=== PATIENT | male | born 1945 | race Caucasian/White ===

== ENCOUNTER 2016-11-12 15:03 | Observation (INO) | payer MEDICARE ==
--- NOTE | ~2016-11-12 | EKG ---
PATIENT: NATALIA BRAGG UNIT #: [id number] Ventricular Rate: 70 BPM Atrial Rate: 70 BPM P-R Interval: 184 ms QRS Duration: 144 ms Q-T Interval: 430 ms QTC Calculation(Bezet): 464 ms P [place]: 83 degrees Calculated R [place]: 0 degrees Calculated T [place]: -24 degrees Diagnosis Line: Sinus rhythm with Premature supraventricular Diagnosis Line: complexes Diagnosis Line: Right bundle branch block Diagnosis Line: Cannot rule out Inferior infarct , age Diagnosis Line: undetermined Diagnosis Line: Abnormal ECG Diagnosis Line: When compared with ECG of 31-JAN-2016 16:36, Diagnosis Line: Premature supraventricular complexes are now Diagnosis Line: Present Diagnosis Line: Minimal criteria for Inferior infarct are now Diagnosis Line: Present Diagnosis Line: Confirmed by RENEE BROWN MD ([id number]) on Diagnosis Line: 11/13/2016 1:29:58 PM INTERPRETING MD: STEPHANIE JOAQUIN
--- NOTE | ~2016-11-12 | CR72 ---
[facility]. [facility] A Service of [facility] & [facility] RADIOLOGY TEXT RESULTS PATIENT: NATALIA BRAGG SR LOCATION: [place] [address] : 43 UNIT #: [id number] AGE: [address]: Jens Scott MD SEX: M ORDER DR: [id number] [facility] [address] [facility] [address] [facility]. [place], [place] [address] [id number] I MR#: [id number] #: [id number] NAME: NATALIA BRAGG SR : 1945 SEX: M STUDY DATE/TIME: 11/12/2016 15:55 UNIT: [facility] ROOM: [facility] STUDY DESCRIPTION: CR Chest Single View Portable Attending Physician: Jens Scott M.D. Ordering Physician: Chris Thornton M.D. Primary Care Physician: Sawyer Pham M.D. MEDICAL IMAGING REPORT This report is preliminary unless electronic signature is present EXAM Portable chest INDICATIONS Left-sided chest pain today. COMPARISON STUDIES 03/06/2016. FINDINGS There is no acute-appearing infiltrate. The heart size is normal. Atherosclerotic calcification of the aorta. The visualized osseous structures are unremarkable. IMPRESSION No active disease. Dictated by... Chava Garrett M.D. THIS IS AN ELECTRONICALLY VERIFIED REPORT Chava Garrett M.D. at 11/14/2016 7:24 AM MY/mario TD: 11/12/2016 21:44 JOB #: [id number] MEDICAL IMAGING REPORT Page 1 of 1 COPY
--- NOTE | ~2016-11-12 | DS ---
Unit #: [id number] #: [id number] Patient: NATALIA BRAGG SR [id number] [address] [address] [id number] I MR#: [id number] NAME: NATALIA BRAGG SR ROOM: 579 Age: 71 Sex: M Admission Date: 11/12/2016 : 1945 Discharge Date: 11/13/2016 Attending Physician: Jens Scott M.D. Primary Care Physician: Sawyer Pham M.D. DISCHARGE SUMMARY SHORT STAY SUMMARY DISCHARGE DIAGNOSES 1. Atypical chest pain, musculoskeletal. 2. History of coronary artery disease and old inferior myocardial infarction, has been under medical management. Last cardiac cardiac cath, 07/2015, showed left ventricular ejection fraction of 30% with 40% stenosis in the proximal left anterior descending, 99% in the first marginal branch of the circumflex, 60% stenosis in the mid circumflex, 100% stenosis in the mid right coronary artery. 3. Last 2-D echo, July 2015, showed left ventricular ejection fraction was 55% with mild left ventricular relaxation and mild tricuspid regurgitation. 4. Hypertension. 5. Hyperlipidemia. 6. Diabetes mellitus type 2. 7. Chronic obstructive pulmonary disease on home oxygen. 8. Old right bundle branch block. 9. Quit smoking last year. 10. Alcohol abuse, quit drinking last year also. DISCHARGE MEDICATIONS 1. Ibuprofen 400 mg every six to eight hours p.r.n. for pain. 2. New prescription, lisinopril 10 mg p.o. daily at h.s. 3. Aldactone 25 mg p.o. daily. 4. Symbicort 160/4.5 mcg two puffs inhalation twice daily. 5. Actoplus/Metformin 15/500 mg one tablet p.o. twice daily. 6. Carvedilol 3.125 mg p.o. twice daily. 7. Guaifenesin 400 mg p.o. twice daily. 8. Lipitor 20 mg p.o. daily. 9. Aspirin 81 mg p.o. daily. 10. Nexium 40 mg one tablet daily. ALLERGIES Penicillin. PAST MEDICAL HISTORY He has possible myelodysplastic syndrome. He follows with Dr. Henning. History of paroxysmal supraventricular tachycardia. Problems with orthostatic hypotension HOSPITAL COURSE This is a 71-year-old white male who is known to Dr. Scott. He sees him in the office. He has a history of old inferior myocardial infarction Unit #: [id number] #: [id number] Patient: NATALIA BRAGG SR back in 2015. He had a cardiac cath which showed a 99% stenosis in the first marginal branch of the circumflex, 60% stenosis in the mid circumflex, 100% stenosis in the mid RCA and 40% stenosis in the proximal LAD. His LVEF was 30%. Prior to the test, he had an echo that showed greater than 55% LVEF. The patient came to the emergency room with recurrent pain in the left outer portion of his side directly under his axillary region. He said it comes and goes. He said like a sharp shooting pain. He said yesterday this sort of lasted all day. He was concerned it could be his heart so he came to the emergency room for further evaluation. The patient's cardiac enzymes remained negative. His EKG did not show anything acute. After Dr. Scott examined the patient, he felt his symptoms were musculoskeletal in nature. He told him he could take an Advil p.r.n. for this brief period to help the discomfort. He wanted to see him in about two months in the office. Dr. Scott, in addition to reviewing his records, he started the patient on an DM inhibitor for his cardiomyopathy. When he was here in the hospital last, he did have some acute kidney injury. The patient's chest x-ray was unremarkable. His cardiac enzymes remained negative. Dr. Scott's recommendations for this patient are to continue on all of his home previous cardiac medication and he will add a small dose of diuretic and DM inhibitor and discharge home. The patient will have a repeat 2D echo in Dr. Scott's office to reevaluate his LVEF. On exam, he does not appear to be in any acute congestive heart failure. The patient has some poor memory recall from the event when he had his heart attack and he was unclear some of the instructions. So, I have reinstructed the patient on CHF education. Information provided to patient and instructed the patient on a 2,000 mL/24 hour fluid restriction, to watch his salt intake. On discharge, the patient is in stable condition. No complaints of chest pain, palpitations or dizziness. His vital signs are stable. PHYSICAL EXAMINATION VITAL SIGNS: Blood pressure 150/72. Heart rate 60. Respirations 18. Temperature 97.8. O2 sat 93%. That is on room air but he does wear oxygen at two liters. NECK: Trachea midline. No thyromegaly or lymphadenopathy. Normal carotid upstrokes. No jugular venous distention. HEART: S1, S2. Regular rate and rhythm. No clicks, murmurs or rubs. LUNGS: Very diminished, otherwise, clear. ABDOMEN: Soft, nontender. EXTREMITIES: Pedal pulses palpable. No pedal edema. REVIEW OF SYSTEMS CONSTITUTIONAL: The patient denies fever or chills. No recent weight gain, weight loss. HEENT: The patient denies headache or dizziness. No visual or hearing changes. No lymphadenopathy or thyromegaly. No difficulty swallowing. CARDIOVASCULAR: Pain under his left axillary region and the left side rib cage area. The patient denies chest pain, substernal chest pain. The patient denies palpitations. PULMONARY: The patient denies shortness of breath. The patient denies paroxysmal nocturnal dyspnea or orthopnea. GASTROINTESTINAL: The patient denies nausea, vomiting, diarrhea or abdominal pain. NEUROLOGIC: No focal weakness except has some poor memory recall. Unit #: [id number] #: [id number] Patient: MAHSA GUZMAN,NATALIA Walker DIAGNOSTIC STUDIES LABORATORY: Glucose 97, BUN 18, creatinine 0.98, GFR 84.4, sodium 138, potassium 3.6, chloride 99, CO2 29, calcium 8.9, total protein 6.3, albumin 3.6, bilirubin total 0.8, AST 15, ALT 10, alkaline phosphatase 46. TSH 2.09. WBC 4.7, hemoglobin 11.6, hematocrit 34.2, platelets 199. Initial cardiac enzymes: CK MB less than 1.0, troponin less than 0.05. CK MB less than 1.0 and troponin less than 0.05. Protime 12.6, INR 1.2. IMAGING: Chest x-ray shows nothing acute. Atherosclerotic calcification of the aorta, otherwise, no active disease. CARDIOVASCULAR: EKG shows normal sinus rhythm. He does have a right bundle branch block which is old. PLAN/INSTRUCTION After Dr. Scott interviewed and examined the patient, he feels like his symptoms are musculoskeletal in nature. He advised him he can take an ibuprofen 400 mg p.o. every 6 to 8 hours for two to three days. If he continues, he needs to follow up with his PCP. Dr. Scott wants him to continue on all of his home previous medications but he is adding a small dose of diuretic, Aldactone 25 mg p.o. daily along with DM inhibitor, lisinopril 10 mg p.o. at bedtime. He is on DM inhibitor for cardiomyopathy. The patient verbalizes understanding and agrees with the treatment and plan. The patient mentioned he was just concerned. He thought he had a heart attack but his EKG does not show anything acute and his cardiac enzymes have remained negative. CHF education given to patient including the pamphlet. I discussed with the patient a 2,000 mL 24-hour fluid restriction along with 2 gm sodium salt restriction. The patient verbalizes understanding. Dr. Scott wants to see the patient in about two to three months in the office. We will make that an appointment and inform the patient. I instructed the patient before discharge that we would be calling him at home with appointment time. Dictated by... Terese Huerta A.P.R.N. for Desiree Mayorga/jennifer TD: 11/13/2016 13:51 JOB #: [id number] DISCHARGE SUMMARY Page 1 of 1 X Terese Huerta APRN X DISCHARGE SUMMARY
[~2016-11-12 15:03] MED LIST: ALB/IPRATROPIUM/1 E1 INH; ALBUTEROL2.5 MG/0.5 NEB; ASPIRIN EC81 M1 PO; BAYER CHEWABLE81 MG PO; COMBIVENT U/D3 M2 INH; COREG3.125 MG PO; EFFEXOR PO; EFFEXOR XR150 MG PO; ESOMEPRAZOLE MA20 MG PO; FENOFIBRATE145 M1 PO; GLUCOPHAGE500 MG PO; GUAIFENESIN LA600 M1 PO; IMDUR-ER30 M1 PO; LEVAQUIN750 M1 PO; LIPITOR PO; LIPITOR20 MG PO; LISINOPRIL10 MG PO; LISINOPRIL20 MG PO; MONTELUKAST SOD10 MG PO; NEXIUM PO; PIOGLITAZONE-M1 EACH PO; PIOGLITAZONE15 MG PO; PREDNISONE10 MG/DOSE PO; PRO-AMATINE5 M1 PO; SPIRIVA18 MCG INH; SYMBICORT INH; TRICOR PO; VICODIN 5/500 T1 TAB PO; ZYVOX600 MG PO; [UNRECOGNIZED DRUG - OTHER]
[2016-11-12 16:10] LABS: POC - CKMB <1.0 ng/mL (0.0-7.9); POC - TROPONIN <0.05 ng/mL (<=0.05)
[2016-11-12 16:24] LABS: BASOPHIL% 0.3 % (0-2.5); EOSINOPHIL# 0.2 X10e3 (0-0.7); EOSINOPHIL% 2.4 % (0.0-7.0); HEMOGLOBIN 12.3 gm/dL (13.0-16.0); LYMPHOCYTE# 1.6 X10e3 (1.0-3.5); LYMPHOCYTE% 25.6 % (17.0-45.0); MEAN CELL VOLUME 96.8 FL (83-96); MEAN CORPUSCULAR HEMOGLOBIN 32.1 PG (28-34); MEAN CORPUSCULAR HGB CONC 33.1 g/dL (30-36); MONOCYTE# 0.5 X10e3 (0-1.0); MONOCYTE% 8.7 % (3.0-12.0); PLATELET COUNT 216 X10e3 (140-420); RED BLOOD COUNT 3.83 X10e (3.90-5.60); RED CELL DISTRIBUTION WIDTH 16.4 % (11.0-15.5); WHITE BLOOD COUNT 6.3 X10e3 (4.0-10.5)
[2016-11-12 16:31] LABS: DIFF IND NO
[2016-11-12 16:34] LABS: INR 1.2; PARTIAL THROMBOPLASTIN TIME 25.6 SECONDS (23.5-31.3); PROTHROMBIN TIME (PATIENT) 12.6 SECONDS (9.6-11.5)
[2016-11-12 16:37] LABS: ALBUMIN SERUM 4.2 g/dL (3.5-5.0); BILIRUBIN, DIRECT 0.1 mg/dL (0.0-0.2); BILIRUBIN,INDIRECT 0.7 mg/dL (0.0-0.9); BILIRUBIN,TOTAL 0.8 mg/dL (0.2-2.0); BUN/CREATININE RATIO 19.09; CALCIUM SERUM 8.9 mg/dL (8.4-10.2); CREATININE SERUM 1.1 mg/dL (0.6-1.4); GLOM FILT RATE Estimated 66.3 mL/min (>60); POTASSIUM 3.8 mmol/L (3.5-5.1); PROTEIN TOTAL SERUM 7.1 g/dL (6.0-8.3)
[2016-11-12 18:03] LABS: POC - CKMB <1.0 ng/mL (0.0-7.9); POC - TROPONIN <0.05 ng/mL (<=0.05)
[2016-11-12] MEDS ORDERED: ASPIRIN EC81 M1 PO (23:40)
[2016-11-12] MEDS ORDERED: COREG3.125 M1 PO (23:41)
[2016-11-12] MEDS ORDERED: ALLFEN400 MG PO (23:43)
[2016-11-12] MEDS ORDERED: NEXIUM PO (23:44)
[2016-11-12] MEDS ORDERED: LIPITOR20 MG PO (23:45)
[2016-11-13 00:16] LABS: CK TOTAL 32 IU/L (36-174)
[2016-11-13 06:14] LABS: HEMATOCRIT 34.2 % (38.0-50.0); HEMOGLOBIN 11.6 gm/dL (13.0-16.0); MEAN CELL VOLUME 95.6 FL (83-96); MEAN CORPUSCULAR HEMOGLOBIN 32.5 PG (28-34); MEAN PLATELET VOLUME 9.8 FL (6.5-11.5); RED BLOOD COUNT 3.57 X10e (3.90-5.60); RED CELL DISTRIBUTION WIDTH 16.2 % (11.0-15.5); WHITE BLOOD COUNT 4.7 X10e3 (4.0-10.5)
[2016-11-13 07:27] LABS: ALBUMIN SERUM 3.6 g/dL (3.5-5.0); BILIRUBIN,TOTAL 0.8 mg/dL (0.2-2.0); CALCIUM SERUM 8.9 mg/dL (8.4-10.2); CREATININE SERUM 0.9 mg/dL (0.6-1.4); GLOM FILT RATE Estimated 84.4 mL/min (>60); POTASSIUM 3.6 mmol/L (3.5-5.1); PROTEIN TOTAL SERUM 6.3 g/dL (6.0-8.3)
[2016-11-13] MEDS ORDERED: SYMBICORT INH (12:07)
[2016-11-13] MEDS ORDERED: ACTOPLUS MET 11 EACH PO (12:08)
[2016-11-13] MEDS ORDERED: PRINIVIL10 MG PO (12:08)
[2016-11-13] MEDS ORDERED: ALDACTONE25 MG PO (12:09)
== END 2016-11-13 12:56 | disposition home or self-care (01) ==
LOC: CED 15:03 → CEDOF 18:00 → CED 18:26 → C5C 18:26 → CEDOF 18:26 → C5C 20:00
PROVIDERS: Emergency Medicine; Internal Medicine Cardiovascular Disease
DX: R07.89 Other chest pain (principal); I25.10 Atherosclerotic heart disease of native coronary artery without angina pectoris; I25.2 Old myocardial infarction; I07.1 Rheumatic tricuspid insufficiency; I10 Essential (primary) hypertension; E78.5 Hyperlipidemia, unspecified; E11.9 Type 2 diabetes mellitus without complications; J44.9 Chronic obstructive pulmonary disease, unspecified; Z99.81 Dependence on supplemental oxygen; I45.10 Unspecified right bundle-branch block; Z87.891 Personal history of nicotine dependence; Z79.84 Long term (current) use of oral hypoglycemic drugs; Z88.0 Allergy status to penicillin; Z79.82 Long term (current) use of aspirin
CPT/HCPCS: 36415; 71010; 80048; 80053; 80076; 82550; 82553; 82947; 83036; 84443; 84484; 85025; 85027; 85610; 85730; 93005; 94640; 99285; G0378

== ENCOUNTER 2017-02-03 02:39 | Inpatient (IN) | payer MEDICARE ==
[~2017-02-03] VITALS: Ht 182.9 cm; Wt 83.8 kg
--- NOTE | ~2017-02-03 | EKG ---
PATIENT: NATALIA BRAGG UNIT #: [id number] Ventricular Rate: 126 BPM Atrial Rate: 126 BPM P-R Interval: 210 ms QRS Duration: 132 ms Q-T Interval: 314 ms QTC Calculation(Bezet): 454 ms Calculated R [place]: -48 degrees Calculated T [place]: 40 degrees Diagnosis Line: Sinus tachycardia with 1st degree A-V block with Diagnosis Line: occasional Premature ventricular complexes Diagnosis Line: Left axis deviation Diagnosis Line: Right bundle branch block Diagnosis Line: Inferior infarct (cited on or before 12-NOV-2016) Diagnosis Line: T wave abnormality, consider lateral ischemia Diagnosis Line: Abnormal ECG Diagnosis Line: When compared with ECG of 12-NOV-2016 15:14, Diagnosis Line: Significant changes have occurred Diagnosis Line: Confirmed by ALVERTO JOAQUIN, SAMEER ([id number]) on 02/05/2017 Diagnosis Line: 10:47:22 PM INTERPRETING MD: ALVERTO JOAQUIN
--- NOTE | ~2017-02-03 | CR72 ---
[facility] A Service of [facility] & [facility] RADIOLOGY TEXT RESULTS PATIENT: NATALIA BRAGG SR LOCATION: [address] : [birth year] UNIT #: [id number] AGE: [address]: Ebony Osman MD SEX: M ORDER DR: [id number] [facility] [address] [facility]. [place], [place] [address] [id number] I MR#: [id number] Acc #: [id number] NAME: NATALIA BRAGG SR : 1945 SEX: M STUDY DATE/TIME: 02/04/2017 2:12 UNIT: [facility] ROOM: [facility] STUDY DESCRIPTION: CR Chest Single View Portable Attending Physician: Ebony Osman M.D. Ordering Physician: Elder May M.D. Primary Care Physician: Sawyer Pham M.D. MEDICAL IMAGING REPORT This report is preliminary unless electronic signature is present EXAM Chest x-ray, 02/04/2017 HISTORY 71-year-old male hospital inpatient with 2-3 day history of shortness of air, cough and congestion. Followup pulmonary status. TECHNIQUE AP portable chest x-ray. FINDINGS The examination shows no active disease in the chest. COPD. The lungs are clear. No significant change since yesterday. IMPRESSION COPD. No active disease. Dictated by... Tyler Mayo M.D. THIS IS AN ELECTRONICALLY VERIFIED REPORT Tyler Mayo M.D. at 02/04/2017 6:08 AM Raúl TD: 02/04/2017 03:42 JOB #: [id number] MEDICAL IMAGING REPORT Page 1 of 1 COPY
--- NOTE | ~2017-02-03 | NM69 ---
[facility] A Service of [facility] RADIOLOGY TEXT RESULTS PATIENT: NATALIA BRAGG SR LOCATION: [facility] : 43 UNIT #: [id number] AGE: [address]: Ebony Osman MD SEX: M ORDER DR: [id number] [facility] [address] [facility]. [place], [place] [address] [id number] I MR#: [id number] Acc #: [id number] NAME: NATALIA BRAGG SR : 1945 SEX: M STUDY DATE/TIME: 02/04/2017 9:38 UNIT: [address] ROOM: [facility] STUDY DESCRIPTION: NM Pulm Vent and Perf Attending Physician: Ebony Osman M.D. Ordering Physician: Elder May M.D. Primary Care Physician: Sawyer Pham M.D. MEDICAL IMAGING REPORT This report is preliminary unless electronic signature is present EXAM Ventilation/perfusion study of the lungs. HISTORY Type 2 diabetes, COPD, CHF, increase in shortness of breath for 2-3 days. TECHNIQUE The ventilation study was done with 33.4 mCi of technetium-99m DTPA in aerosol form and the perfusion study was done with 5.7 mCi of technetium-99m MAA. COMPARISON There is a chest x-ray from the same date for comparison. FINDINGS There are no significant perfusion defects. The ventilation images are inhomogeneous consistent with emphysema. IMPRESSION The study indicates a low probability for pulmonary embolus. The ventilation study suggests emphysema. Dictated by... Nima Sheffield M.D. THIS IS AN ELECTRONICALLY VERIFIED REPORT Nima Sheffield M.D. at 02/04/2017 3:22 PM SMITA/braydon TD: 02/04/2017 12:34 [facility] A Service of [facility] & [facility] RADIOLOGY TEXT RESULTS PATIENT: NATALIA BRAGG SR LOCATION: [facility] : 43 UNIT #: [id number] AGE: [address]: Ebony Osman MD SEX: M ORDER DR: JOB #: [id number] MEDICAL IMAGING REPORT Page 1 of 1 COPY
--- NOTE | ~2017-02-03 | HP ---
Unit #: [id number] #: [id number] Patient: NATALIA BRAGG SR [id number] [address] [address] [id number] I MR#: [id number] NAME: NATALIA BRAGG SR ROOM: [facility] Age: 71 Sex: M Admission Date: 02/03/2017 : 1945 Attending Physician: Ebony Osman M.D. Primary Care Physician: Sawyer Pham M.D. HISTORY AND PHYSICAL REASON FOR ADMISSION Shortness of breath HISTORY OF PRESENT ILLNESS This patient is a very pleasant 71-year-old male who has prior history of chronic respiratory rate, end-stage COPD as well as coronary artery disease and heart failure who presented secondary to increased dyspnea for the past several days. He stated that he had progressive shortness of breath, worsened over the past 24 hours, thus presented to the hospital for further evaluation. He has had a prior history of apparently extensive hospital admissions in the past secondary to MRSA pneumonia as well as respiratory failure back in 2015. PAST MEDICAL HISTORY 1. Chronic respiratory failure on home O2 at [address] Bangura as an outpatient 2. Type 2 diabetes 3. Myelodysplastic syndrome followed by Dr. Henning 4. Anemia 5. Prior history of paroxysmal supraventricular tachycardia 6. Coronary artery disease 7. Prior history of heart failure, systolic with ejection fraction 30% noted on cardiac catheterization July 2015 8. COPD 9. Hypertension 10. Prior tobacco abuse 11. Hyperlipidemia 12. Prior history of gastrointestinal bleed 13. Prior history of MRSA pneumonia 14. Cardiac catheterization July 2015 15. Prior history of right bundle branch block 16. Chronic prior history of alcohol abuse, quit August 2015 17. Transient ischemic attack history ALLERGIES Penicillin MEDICATIONS 1. Aspirin 2. Allergy medications 3. Nexium 4. Lipitor 5. Symbicort Unit #: [id number] #: [id number] Patient: NATALIA BRAGG SR 6. 7. Prinivil 8. Aldactone REVIEW OF SYSTEMS Please see HPI. Twelve point otherwise negative except for those positive noted in the history of present illness. SOCIAL HISTORY Negative alcohol, negative tobacco use. He does have a prior history of alcohol and tobacco abuse, to which he quit in August 2015, approximately 50-60 pack year smoking history. FAMILY HISTORY Reviewed, negative and not pertinent CODE STATUS The patient is full code. PHYSICAL EXAMINATION VITAL SIGNS: Temperature 97.6, pulse 150, respiratory rate 28, blood pressure 180/103 on admission. HEENT: Atraumatic, normocephalic. Tympanic membranes do not reveal any errythema or injection. NECK: Supple. No JVD. No accessory muscle use noted. CARDIOVASCULAR: S1 and S2, tachycardia without murmur. RESPIRATORY: Coarse breath sounds with prolonged expiration bilaterally. GI/ABDOMEN: Nontender, nondistended. EXTREMITIES: Lower extremities have no lower extremity edema. No calf tenderness. NEUROLOGICAL: Patient is alert and oriented x3. EMERGENCY ROOM COURSE The patient received Solu-Medrol 125 mg IV x1, Lasix 40 mg IV x1 and had nitroglycerin patch placed. The patient was initially placed on BiPAP to keep O2 saturations greater than 90%. Since that time and I have evaluated currently on ICU floor, he has been transitioned off of BiPAP. He is currently on O2 at approximately 4 liters. INITIAL ADMISSION DIAGNOSES 1. Dyspnea, multifactorial in origin. 2. Akmlf-pg-mkwkgcv respiratory failure, hypoxic. 3. Chronic obstructive pulmonary disease end-stage on home O2. 4. Baacn-of-xvnofhd systolic heart failure with ejection fraction noted previously to be approximately 30-35%. 5. Extensive coronary artery disease. 6. Hypertension history. 7. Hyperlipidemia. 8. Type 2 diabetes. 9. Myelodysplastic syndrome followed by Dr. Henning. PLAN Admission. Initial ICU placement secondary to BiPAP, currently stable. We will transition to telemetry floor. Cardiac consultation. Pulmonary consultation. IV dieresis. Strict intake and output. Follow routine laboratory studies. Await final blood cultures. Aerosols. IV Unit #: [id number] #: [id number] Patient: MAHSA GUZMAN,NATALIA Walker Solu-Medrol. IV antibiotics will be initiated. Further hospital course pending above. The patient is full code. Dictated by Ebony Osman M.D. ISN/grecia TD: 02/03/2017 15:55 JOB #: [id number] HISTORY AND PHYSICAL Page 1 of 1 X Ebony Osman MD HISTORY AND PHYSICAL
--- NOTE | ~2017-02-03 | EKG ---
PATIENT: NATALIA BRAGG UNIT #: [id number] Ventricular Rate: 72 BPM Atrial Rate: 72 BPM P-R Interval: 162 ms QRS Duration: 146 ms Q-T Interval: 486 ms QTC Calculation(Bezet): 532 ms P [place]: 66 degrees Calculated R [place]: -11 degrees Calculated T [place]: -170 degrees Diagnosis Line: Sinus rhythm with marked sinus arrhythmia Diagnosis Line: Right bundle branch block Diagnosis Line: Marked T-wave abnormality, consider inferolateral Diagnosis Line: ischemia Diagnosis Line: Abnormal ECG Diagnosis Line: When compared with ECG of 03-FEB-2017 03:04, Diagnosis Line: (unconfirmed) Diagnosis Line: Normal sinus rhythm has replaced Atrial Diagnosis Line: fibrillation Diagnosis Line: Confirmed by SAMEER DEL TORO MD ([id number]) on 02/05/2017 Diagnosis Line: 11:38:10 PM INTERPRETING MD: ALVERTO JOAQUIN
--- NOTE | ~2017-02-03 | CR72 ---
[facility] A Service of [facility] & [facility] & [facility] RADIOLOGY TEXT RESULTS PATIENT: NATALIA BRAGG SR LOCATION: [address] : [birth year] UNIT #: [id number] AGE: [address]: Ebony Osman MD SEX: M ORDER DR: [id number] [facility] [address] [facility]. [place], [place] [address] [id number] I MR#: [id number] #: [id number] NAME: NATALIA BRAGG SR : 1945 SEX: M STUDY DATE/TIME: 02/03/2017 3:13 UNIT: [facility] ROOM: [facility] STUDY DESCRIPTION: CR Chest Single View Portable Attending Physician: Ebony Osman M.D. Ordering Physician: Sharath Crespo M.D. Primary Care Physician: Sawyer Pham M.D. MEDICAL IMAGING REPORT This report is preliminary unless electronic signature is present EXAM Chest x-ray 02/03/2017 HISTORY 71-year-old male in the ED complaining of 2-day history of cough and congestion. AP portable chest x-ray. FINDINGS Generalized pulmonary hyperinflation and lung hyperlucency compatible with COPD. The lungs appear clear. Heart size and pulmonary vascularity are within normal limits. No visible pulmonary infiltrate or pleural effusion. No change since 11/12/2016. IMPRESSION 1. No active disease. 2. COPD. 3. No change since 11/12/2016. Dictated by... Tyler Mayo M.D. THIS IS AN ELECTRONICALLY VERIFIED REPORT Tyler Mayo M.D. at 02/03/2017 10:02 PM CLAUDETTE/trell TD: 02/03/2017 04:52 JOB #: [id number] MEDICAL IMAGING REPORT Page 1 of 1 COPY
--- NOTE | ~2017-02-03 | DS ---
Unit #: [id number] #: [id number] Patient: NATALIA BRAGG SR [id number] [address] [address] [id number] I MR#: [id number] NAME: NATALIA BRAGG SR ROOM: [facility] Age: 71 Sex: M Admission Date: 02/03/2017 : 1945 Discharge Date: 02/05/2017 Attending Physician: Ebony Osman M.D. Primary Care Physician: Sawyer Pham M.D. DISCHARGE SUMMARY REASON FOR ADMISSION Dyspnea. HISTORY OF PRESENT ILLNESS/HOSPITAL COURSE The patient is a very pleasant, 71-year-old male, prior history of chronic respiratory failure, end-stage COPD on home oxygen two to three liters, prior history of coronary artery disease, systolic/diastolic heart failure, who presented secondary to dyspnea, increased shortness of breath. Through hospital course, consultations were initially placed to Dr. Gerardo and liborio from a cardiac standpoint. The patient was placed on IV diuresis, diuresed well, appeared to be euvolemic today and was signed off by Cardiology Services. No other acute intervention was done while the patient was here. We also placed consultation to Dr. Castrejon, as he is a longstanding patient of theirs in the office. Initially, the patient was placed on IV Solu-Medrol aerosols and this was gradually transitioned to p.o. medications. He was given a prescription for p.o. prednisone taper at time of discharge. At this point in time, the patient was clinically stable. He is on his home dose of approximately 2 to 3 liters of home O2. He is clinically euvolemic and he is stable for discharge. FINAL DISCHARGE DIAGNOSES 1. Acute on chronic respiratory failure. 2. End-stage chronic obstructive pulmonary disease, O2 dependent. 3. Diabetes type 2. 4. Myelodysplastic syndrome followed by Dr. Henning. 5. Anemia. 6. Prior history of paroxysmal supraventricular tachycardia. 7. Coronary artery disease. 8. Prior history of heart failure, mixed systolic/diastolic. Ejection fraction estimated at 30%. 9. Hypertension. 10. Prior history of tobacco abuse. 11. Hyperlipidemia. 12. Methicillin-resistant Staphylococcus aureus pneumonia 2016. 13. Longstanding EKG abnormality with right bundle branch block. 14. Prior transient ischemic attack history. FINAL DISCHARGE MEDICATIONS 1. Actos plus Met 15/500 mg one tablet p.o. q.8. 2. Coreg 3.125 mg p.o. b.i.d. 3. Prednisone taper. Unit #: [id number] #: [id number] Patient: MAHSA GUZMAN,NATALIA Walker 4. Lasix 20 mg p.o. b.i.d. 5. Lisinopril 2.5 mg p.o. daily. 6. Lipitor 20 mg p.o. q.h.s. 7. Aspirin 81 mg p.o. daily. 8. Aldactone 12.5 mg p.o. daily. 9. Nexium 40 mg p.o. daily. DISCHARGE CONDITION Stable. DISCHARGE DISPOSITION Home with home health. Dictated by... Ebony Osman M.D. JAD/jennifer TD: 02/08/2017 08:27 JOB #: [id number] DISCHARGE SUMMARY Page 1 of 1 X Ebony Osman MD X DISCHARGE SUMMARY
--- NOTE | ~2017-02-03 | CO ---
Unit #: [id number] #: [id number] Patient: NATALIA GAMEZ SR [id number] [address] [place], [place] [address] [id number] MR#: [id number] NAME: NATALIA GAMEZ SR [facility] Age: 71 Sex: M Admission Date: 02/03/2017 : 1945 Attending Physician: Ebony Osman M.D. Primary Care Physician: Sawyer Pham M.D. Consultation Date: 02/03/2017 CONSULTATION REPORT REASON FOR CONSULTATION Hypotension and chronic systolic congestive heart failure. HISTORY OF PRESENT ILLNESS This is a 71-year-old white male with a history of having a previous MN and had his catheterization in 07/2015 that shows an EF of 30%. He has some blockage in the first marginal branch of the circumflex, which was a small caliber vessel and in the mid RCA, which had collateral fillings and medical management was recommended by Dr. Scott. He also has COPD, wears continuous home oxygen, hypertension, diabetes, hyperlipidemia, questionable myelodysplastic syndrome and follows Dr. Henning, history of PSVT, orthostatic hypotension, and previous TIAs. The patient a couple weeks ago went to [place], [place] and is in a research group for stem-cell treatment for his COPD. He was sent by Dr. Bangura's office, Arleen is a nurse practitioner. The patient said he has been doing fairly well. Since that time, he does not do a lot of exertional activity, but he said he has been fairly stable. His son said he talked to him and saw him last evening at 10:00 p.m., he was doing okay and then through the night, the patient said he started feeling dyspneic and had paroxysmal nocturnal dyspnea and orthopnea. He said he just felt like he was smothering. He was brought into the emergency room, and was found to be hypoxic with 87% on 2 L. The patient's blood pressure was also 180/103, heart rate was 115, respirations 28, temperature is 97.6. The patient received 125 mg of IV Solu-Medrol, Lasix 40 mg IV, 1-inch nitroglycerin paste applied to chest wall. The patient's chest x-ray showed that the lungs appear clear, but he has COPD. His BNP was 369. The patient had been on the BiPAP for some time through the night, but now is on O2 at 2L and his O2 sats are running 96% to 98%. He had a dose of his metoprolol this morning along with IV Lasix and his blood pressure dropped in the 70s for a just short period. He is now running in the 90s and low 100s systolically. Cardiology has been asked to assist with evaluation and management. On interviewing same with the patient, he denies any chest pain, pain in his neck, bilateral jaws, shoulders, arms, or elbow. Denies any palpitations. No dizziness, presyncope, or syncope. Denies any increased lower extremity edema. He has occasional cough, but no fever or chills. PAST MEDICAL HISTORY 1. History of coronary artery disease. 2. Previous inferior wall MN. He had a cardiac cath with Dr. Scott in 07/2015 revealed LVEF of 30% with a 40% stenosis in the proximal LAD, 99% stenosis in the first marginal branch of the circumflex that was a small caliber vessel, 68% stenosis in the mid circumflex, 100% stenosis in the Unit #: [id number] #: [id number] Patient: MAHSA ,NATALIA Walker mid RCA that has collateral filling-medical management. 3. 07/2015, 2D echo, LVEF of 55% with mild left ventricular hypertrophy and mild tricuspid regurgitation. 4. COPD, continues home oxygen. 5. Hypertension. 6. Hyperlipidemia. 7. Diabetes mellitus, type 2. 8. Chronic right bundle branch block on EKG. 9. Questionable myelodysplastic syndrome, follows with Dr. Henning. 10. History of paroxysmal supraventricular tachycardia. 11. History of orthostatic hypotension. 12. History of TIAs in the past. 13. Quit smoking and alcohol abuse in 08/2015. PAST SURGICAL HISTORY 1. Back surgery. 2. Skin cancer removed over his left eye. 3. Cataract surgery. HOME MEDICATIONS Actoplus Met 15/500 one tablet p.o. b.i.d., Prinivil 10 mg p.o. at bedtime, Aldactone 25 mg daily, aspirin 81 mg daily, carvedilol 3.125 mg p.o. b.i.d., guaifenesin 400 mg p.o. b.i.d., Nexium 40 mg p.o. every evening, Lipitor 20 mg p.o. daily. ALLERGIES Penicillin. SOCIAL HISTORY The patient lives in his own home alone, but his son lives close by. They check on him every day. He quit drinking and smoking in 08/2015. He has a history of smoking and drinking beer most of his adult life. No illicit drug abuse. FAMILY HISTORY No known coronary artery disease in his parents or siblings. REVIEW OF SYSTEMS See details in HPI. PHYSICAL EXAMINATION GENERAL: Mr. Gamez is a 71-year-old white male, in no acute respiratory distress. He is awake, alert, answers most of the questions appropriately. VITAL SIGNS: Blood pressure 71/27 earlier today, but now it is 101/43, 112/56, respirations 16, heart rate is 80, temperature is 98.2, O2 saturations 97% on 2L. NECK: Trachea midline. No thyromegaly or lymphadenopathy. Normal carotid upstrokes. No jugular venous distention. HEART: S1, S2. Regular rate and rhythm. No clicks, murmurs, or rubs. LUNGS: Very diminished. ABDOMEN: Soft, nontender. Positive bowel sounds present. EXTREMITIES: Pedal pulses are palpable. No pedal edema. DIAGNOSTIC DATA ABGs on admission; pH is 7.258, pCO2 of 66.1, pO2 of 127 that was on 4 L. Glucose 156, BUN 20, creatinine 1.3, eGFR is 54.1. Sodium 135, potassium 4.0, chloride 101, CO2 of 28, calcium is 8.6, total protein 7.3, albumin 4.1, bilirubin total 0.8, AST 20, ALT 12, alkaline phosphatase is 61. BNP Unit #: [id number] #: [id number] Patient: MAHSA GUZMAN,NATALIA D is 369. WBC 9.9, hemoglobin 11.5, hematocrit 33.5, platelets is 298. Initial cardiac enzymes; CK-MB is less than 1.0, troponin less than 0.05. INR is 1.1 with a D-dimer of 594. IMAGING STUDIES: Chest x-ray shows no active disease, COPD. EKG shows normal sinus rhythm with a right bundle-branch block, left axis deviation, rare premature ventricular complex, ST-T wave abnormalities in lateral leads, poor R-wave progression. IMPRESSION 1. Acute on chronic hypoxic respiratory failure. 2. Chronic obstructive pulmonary disease, wears continuous home oxygen. 3. Hypotension. 4. History of orthostatic hypotension. 5. Coronary artery disease. See details in HPI. An MN and catheterization back in 2015. 6. Left ventricular ejection fraction of 55% on 2D echo in 07/2015, but on heart catheterization was 30%. 7. Hypertension. 8. Hyperlipidemia. 9. Diabetes mellitus, type 2. 10. Right bundle-branch block on EKG. 11. Myelodysplastic syndrome, follows Dr. Henning. 12. History of paroxysmal supraventricular tachycardia. 13. Transient ischemic attacks in the past. 14. Reformed smoker. No alcohol abuse. PLAN 1. Cardiology was consulted to evaluate and manage the patient's hypotension. 2. We will decrease the doses of all of his heart failure medications. We will decrease the Aldactone dose to 12.5 mg daily and decrease his lisinopril from 10 to 2.5 mg, but have parameters. 3. Decrease the dose of Lasix from 40 b.i.d. to 20 mg b.i.d. 4. On exam, there are no signs or symptoms of unstable angina. Cardiac enzymes are negative. 5. Reinforced CHF education. 6. The patient reported that he is in a research or experimental program and went to [place], [place] a couple of weeks ago for stem cell research for his lungs. 7. At this point, no further cardiac workup. 8. Further recommendations pending per Dr. Gerardo. Thank you very much for allowing us to assist in his care. Dictated by... Jennifer Ludwig/gabil TD: 02/04/2017 01:04 JOB #: [id number] Unit #: [id number] #: [id number] Patient: MAHSA ,NATALIA Walker CONSULTATION REPORT Page 1 of 1 X Terese Huerta APRN CONSULTATION REPORT
[~2017-02-03 02:39] MED LIST changes: +ACTOPLUS MET 11 EACH PO; +ALDACTONE25 MG PO; +ALLFEN400 MG PO; +COREG3.125 M1 PO; +PRINIVIL10 MG PO
[2017-02-03 03:05] LABS: ARTERIAL BLD GAS O2 SATURATION 97.1 % (90.0-100.0); ARTERIAL BLOOD GAS CARBOXY HB 0.8 %sat (0.0-9.0); ARTERIAL BLOOD GAS HCO3 29.5 mmol/L; ARTERIAL BLOOD GAS MET HB 0.8 %sat (0.0-2.0); ARTERIAL BLOOD GAS pH 7.258 (7.350-7.450)
[2017-02-03 03:06] LABS: ARTERIAL BLOOD GAS ALLEN TEST NORMAL; ARTERIAL BLOOD GAS ART SITE RIGHT RADIAL; ARTERIAL BLOOD GAS DELIVERY NASAL CANNULA; ARTERIAL BLOOD GAS PCO2 66.1 mmHg (35.0-45.0); ARTERIAL DRAW? YES
[2017-02-03 03:14] LABS: POC - CKMB <1.0 ng/mL (0.0-7.9); POC - TROPONIN <0.05 ng/mL (<=0.05)
[2017-02-03 03:22] LABS: BASOPHIL% 0.5 % (0-2.5); DIFF IND NO; EOSINOPHIL# 0.2 X10e3 (0-0.7); EOSINOPHIL% 2.5 % (0.0-7.0); HEMATOCRIT 33.5 % (38.0-50.0); HEMOGLOBIN 11.5 gm/dL (13.0-16.0); LYMPHOCYTE# 4.1 X10e3 (1.0-3.5); LYMPHOCYTE% 41.3 % (17.0-45.0); MEAN CELL VOLUME 98.1 FL (83-96); MEAN CORPUSCULAR HEMOGLOBIN 33.8 PG (28-34); MEAN CORPUSCULAR HGB CONC 34.5 g/dL (30-36); MEAN PLATELET VOLUME 9.8 FL (6.5-11.5); MONOCYTE# 1.1 X10e3 (0-1.0); MONOCYTE% 10.9 % (3.0-12.0); NEUTROPHIL# 4.4 X10e3 (1.5-7.1); NEUTROPHIL% 44.8 % (40-75); PLATELET COUNT 298 X10e3 (140-420); RED BLOOD COUNT 3.41 X10e (3.90-5.60); RED CELL DISTRIBUTION WIDTH 16.6 % (11.0-15.5); WHITE BLOOD COUNT 9.9 X10e3 (4.0-10.5)
[2017-02-03 03:27] LABS: INR 1.1; PARTIAL THROMBOPLASTIN TIME 24.2 SECONDS (23.5-31.3); PROTHROMBIN TIME (PATIENT) 12.2 SECONDS (10.0-11.7)
[2017-02-03 03:38] LABS: ALBUMIN SERUM 4.1 g/dL (3.5-5.0); BILIRUBIN, DIRECT 0.2 mg/dL (0.0-0.2); BILIRUBIN,INDIRECT 0.6 mg/dL (0.0-0.9); BILIRUBIN,TOTAL 0.8 mg/dL (0.2-2.0); BUN/CREATININE RATIO 15.38; CALCIUM SERUM 8.6 mg/dL (8.4-10.2); CREATININE SERUM 1.3 mg/dL (0.6-1.4); GLOM FILT RATE Estimated 54.1 mL/min (>60); PROTEIN TOTAL SERUM 7.3 g/dL (6.0-8.3)
[2017-02-04 05:13] LABS: BASOPHIL% 0.1 % (0-2.5); LYMPHOCYTE# 0.7 X10e3 (1.0-3.5); LYMPHOCYTE% 7.9 % (17.0-45.0); MEAN CELL VOLUME 97.2 FL (83-96); MEAN CORPUSCULAR HEMOGLOBIN 33.5 PG (28-34); MEAN CORPUSCULAR HGB CONC 34.5 g/dL (30-36); MEAN PLATELET VOLUME 9.9 FL (6.5-11.5); MONOCYTE# 0.4 X10e3 (0-1.0); MONOCYTE% 4.4 % (3.0-12.0); NEUTROPHIL# 7.7 X10e3 (1.5-7.1); NEUTROPHIL% 87.6 % (40-75); PLATELET COUNT 239 X10e3 (140-420); RED BLOOD COUNT 2.98 X10e (3.90-5.60); RED CELL DISTRIBUTION WIDTH 16.6 % (11.0-15.5); WHITE BLOOD COUNT 8.8 X10e3 (4.0-10.5)
[2017-02-04 05:30] LABS: CALCIUM SERUM 8.6 mg/dL (8.4-10.2); GLOM FILT RATE Estimated 74.3 mL/min (>60); POTASSIUM 3.9 mmol/L (3.5-5.1)
[2017-02-04 05:43] LABS: DIFF IND NO
[2017-02-05 05:37] LABS: HEMATOCRIT 29.2 % (38.0-50.0); MEAN CELL VOLUME 97.4 FL (83-96); MEAN CORPUSCULAR HEMOGLOBIN 33.3 PG (28-34); MEAN CORPUSCULAR HGB CONC 34.2 g/dL (30-36); MEAN PLATELET VOLUME 9.7 FL (6.5-11.5); RED BLOOD COUNT 2.99 X10e (3.90-5.60); RED CELL DISTRIBUTION WIDTH 16.6 % (11.0-15.5); WHITE BLOOD COUNT 12.7 X10e3 (4.0-10.5)
[2017-02-05 06:21] LABS: CALCIUM SERUM 8.7 mg/dL (8.4-10.2); CREATININE SERUM 1.1 mg/dL (0.6-1.4); GLOM FILT RATE Estimated 66.3 mL/min (>60); POTASSIUM 3.9 mmol/L (3.5-5.1)
[2017-02-05] MEDS ORDERED: LASIX20 MG PO (15:34)
[2017-02-05] MEDS ORDERED: LIPITOR20 MG PO (15:35)
[2017-02-05] MEDS ORDERED: ZESTRIL2.5 M1 PO (15:36)
[2017-02-05] MEDS ORDERED: DOXYCYCLINE HY100 M3 PO (15:37)
[2017-02-05] MEDS ORDERED: PREDNISONE10 MG PO (15:38)
== END 2017-02-05 17:30 | disposition home health service (06) | DRG 291 ==
LOC: CED 02:39 → CEDOF 04:21 → CED 04:36 → CEDOF 04:36 → CICCU2 05:31 → C3A PCU 02-04 07:58 → CICCU2 02-04 07:58 → C3A PCU 02-05 17:30
PROVIDERS: Emergency Medicine; Family Medicine; Internal Medicine
DX: I11.0 Hypertensive heart disease with heart failure (principal); J96.21 Acute and chronic respiratory failure with hypoxia; Z99.81 Dependence on supplemental oxygen; I50.23 Acute on chronic systolic (congestive) heart failure; J44.9 Chronic obstructive pulmonary disease, unspecified; I25.10 Atherosclerotic heart disease of native coronary artery without angina pectoris; E78.5 Hyperlipidemia, unspecified; E11.9 Type 2 diabetes mellitus without complications; D46.9 Myelodysplastic syndrome, unspecified; Z87.891 Personal history of nicotine dependence; I45.10 Unspecified right bundle-branch block; Z86.73 Personal history of transient ischemic attack (TIA), and cerebral infarction without residual deficits; Z88.0 Allergy status to penicillin; Z79.82 Long term (current) use of aspirin
CPT/HCPCS: 36415; 36600; 71010; 78582; 80048; 80076; 82308; 82553; 82803; 82947; 83880; 84484; 85025; 85027; 85379; 85610; 85730; 87040; 87070; 87077; 87186; 87205; 87633; 93005; 94640; 94660; 94760; 96374; 96375; 99291; A9540; A9567; J1650; J1815; J1940; J2920; J2930; J3370

== ENCOUNTER 2017-02-23 14:46 | Emergency (ER) | payer MEDICARE ==
[~2017-02-23] VITALS: Ht 180.3 cm; Wt 81.6 kg
--- NOTE | ~2017-02-23 | EKG ---
PATIENT: NATALIA BRAGG UNIT #: [id number] Ventricular Rate: 86 BPM Atrial Rate: 86 BPM P-R Interval: 144 ms QRS Duration: 134 ms Q-T Interval: 382 ms QTC Calculation(Bezet): 457 ms P Highland: 52 degrees Calculated R Highland: 25 degrees Calculated T Highland: 107 degrees Diagnosis Line: Sinus rhythm with Premature atrial complexes and Diagnosis Line: PVC's Diagnosis Line: Right bundle branch block Diagnosis Line: T wave abnormality, consider lateral ischemia Diagnosis Line: Abnormal ECG Diagnosis Line: When compared with ECG of 04-FEB-2017 06:32, Diagnosis Line: QT has shortened Diagnosis Line: Confirmed by INDIRA MORALES MD ([id number]) on Diagnosis Line: 02/25/2017 4:52:41 PM INTERPRETING MD: ERNESTO
--- NOTE | ~2017-02-23 | CR72 ---
[facility] A Service of [facility] RADIOLOGY TEXT RESULTS PATIENT: NATALIA BRAGG SR LOCATION: [facility] : [birth year] UNIT #: [id number] AGE: [address]: Landon Otto MD SEX: M ORDER DR: [id number] [facility] [address] [place], [place] [address] [id number] MR#: [id number] Acc #: [id number] NAME: NATALIA BRAGG SR : 1945 SEX: M STUDY DATE/TIME: 02/23/2017 15:12 UNIT: [facility] ROOM: STUDY DESCRIPTION: CR Chest Single View Portable Attending Physician: Landon Otto M.D. Ordering Physician: Landon Otto M.D. Primary Care Physician: Sawyer Pham M.D. MEDICAL IMAGING REPORT This report is preliminary unless electronic signature is present EXAM Single view of the chest, 02/23/2017 COMPARISON Single view chest, 02/04/2017 HISTORY Congestion, mild chest pain since yesterday. FINDINGS Single view of the chest was obtained. No acute cardiopulmonary disease. There is minimal prominence of the interstitial markings in the lung bases, nonspecific. It is likely worse on the left. No pleural effusion or pneumothorax. Heart is of normal size. Dictated by... Bridget Reilly M.D. THIS IS AN ELECTRONICALLY VERIFIED REPORT Bridget Reilly M.D. at 02/24/2017 9:15 PM CPR/jw TD: 02/24/2017 16:35 JOB #: [id number] MEDICAL IMAGING REPORT Page 1 of 1 COPY
[~2017-02-23 14:46] MED LIST changes: +DOXYCYCLINE HY100 M3 PO; +LASIX20 MG PO; +PREDNISONE10 MG PO; +ZESTRIL2.5 M1 PO
[2017-02-23 15:20] LABS: ARTERIAL BLD GAS O2 SATURATION 97.6 % (90.0-100.0); ARTERIAL BLOOD GAS CARBOXY HB 0.6 %sat (0.0-9.0); ARTERIAL BLOOD GAS HCO3 32.4 mmol/L; ARTERIAL BLOOD GAS MET HB 0.9 %sat (0.0-2.0); ARTERIAL BLOOD GAS pH 7.418 (7.350-7.450)
[2017-02-23 15:21] LABS: ARTERIAL BLOOD GAS ALLEN TEST NORMAL; ARTERIAL BLOOD GAS ART SITE RIGHT RADIAL; ARTERIAL BLOOD GAS DELIVERY NASAL CANNULA; ARTERIAL BLOOD GAS LITER FLOW 3.5; ARTERIAL BLOOD GAS PCO2 50.1 mmHg (35.0-45.0); ARTERIAL DRAW? YES
[2017-02-23 15:52] LABS: BASOPHIL% 0.5 % (0-2.5); EOSINOPHIL% 0.3 % (0.0-7.0); HEMATOCRIT 31.3 % (38.0-50.0); HEMOGLOBIN 10.8 gm/dL (13.0-16.0); LYMPHOCYTE# 1.6 X10e3 (1.0-3.5); LYMPHOCYTE% 21.7 % (17.0-45.0); MEAN CELL VOLUME 97.4 FL (83-96); MEAN CORPUSCULAR HEMOGLOBIN 33.8 PG (28-34); MEAN CORPUSCULAR HGB CONC 34.7 g/dL (30-36); MEAN PLATELET VOLUME 9.1 FL (6.5-11.5); MONOCYTE# 0.9 X10e3 (0-1.0); MONOCYTE% 12.6 % (3.0-12.0); NEUTROPHIL# 4.6 X10e3 (1.5-7.1); NEUTROPHIL% 64.9 % (40-75); PLATELET COUNT 259 X10e3 (140-420); RED BLOOD COUNT 3.21 X10e (3.90-5.60); RED CELL DISTRIBUTION WIDTH 16.5 % (11.0-15.5); WHITE BLOOD COUNT 7.2 X10e3 (4.0-10.5)
[2017-02-23 15:53] LABS: DIFF IND NO
[2017-02-23 16:26] LABS: BILIRUBIN, DIRECT 0.2 mg/dL (0.0-0.2); BILIRUBIN,INDIRECT 1.1 mg/dL (0.0-0.9); BILIRUBIN,TOTAL 1.3 mg/dL (0.2-2.0); BUN/CREATININE RATIO 19.09; CALCIUM SERUM 8.5 mg/dL (8.4-10.2); CREATININE SERUM 1.1 mg/dL (0.6-1.4); GLOM FILT RATE Estimated 66.3 mL/min (>60); POTASSIUM 4.1 mmol/L (3.5-5.1); PROTEIN TOTAL SERUM 6.7 g/dL (6.0-8.3)
[2017-02-23 16:29] LABS: POC - CKMB 1.8 ng/mL (0.0-7.9); POC - TROPONIN <0.05 ng/mL (<=0.05)
== END 2017-02-23 17:30 | disposition home or self-care (01) ==
LOC: CED 14:46
PROVIDERS: Emergency Medicine
DX: J44.1 Chronic obstructive pulmonary disease with (acute) exacerbation (principal); I11.0 Hypertensive heart disease with heart failure; I50.9 Heart failure, unspecified; I25.10 Atherosclerotic heart disease of native coronary artery without angina pectoris; I25.2 Old myocardial infarction; E11.9 Type 2 diabetes mellitus without complications; E78.5 Hyperlipidemia, unspecified; Z86.73 Personal history of transient ischemic attack (TIA), and cerebral infarction without residual deficits; Z87.891 Personal history of nicotine dependence
CPT/HCPCS: 36415; 36600; 71010; 80048; 80076; 82553; 82803; 83605; 83880; 84484; 85025; 87040; 93005; 94640; 96374; 99285; J1940; J2930